=== PATIENT | male | born 1960 | race Caucasian/White ===

== ENCOUNTER 2022-07-26 15:41 | Emergency (ER) | payer OTHER, SELFPAY ==
[2022-07-26] VITALS (11 sets, daily range): BP systolic 139–182; BP diastolic 73–88; PULSE 85–99; RESP 16–28; TEMP 37; O2SAT 91–98
--- NOTE | ~2022-07-26 | CT_ITS ---
EXAMINATION: CTA brain carotid DATE: 07/26/2022 19:57 INDICATION: new onset vertigo TECHNIQUE: Computed tomographic angiography (CTA) of the head was performed without and with 100 mL O mnipaque-350 intravenous contrast. CTA of the neck was performed with intravenous contrast. Automated exposure control and iterative reconstruction technique were employed. The dose-length product was 2 813.95 mGy-cm. Maximum intensity projection and volume rendered 3D-reconstructions were created by ronnie wray technologist on a separate workstation. COMPARISON: None. FINDINGS: Exam limited by body habitus and contrast bolus timing difficulty. CT BRAIN: No acute large vessel infarct, intracranial hemorrhage, mass, or hydrocephalus. Focal area of encepha lomalacia in the right parietal lobe. Old bilateral basal ganglia lacunar infarcts. Trace right masto id fluid. Expansile right ethmoid air cell polyp which obstructs the right sphenoid sinus which is ne coco completely opacified and also bows into the right orbital space CTA HEAD: No large vessel occlusion, aneurysm, high flow vascular malformation, nidus or extravasation. Calcifi ed plaque at the proximal left anterior cerebral artery, without significant stenosis. Calcified plaq ues in the cavernous portions of the bilateral carotids, with mild bilateral stenoses. CTA NECK: Aortic arch and proximal great vessels: Atherosclerotic calcifications at the visualized aortic arch and proximal great vessels. Right common carotid, carotid bifurcation, and internal carotid artery: Moderate calcified and noncal cified plaque at the carotid bifurcation.There is at least 60% stenosis of the proximal right interna l carotid artery relative to normal distal artery lumen diameter (NASCET criteria). Left common carotid, carotid bifurcation, and internal carotid artery: Significant calcified and nonc alcified plaque at the carotid bifurcation.There is at least 80% stenosis of the proximal left planner intern al carotid artery relative to normal distal artery lumen diameter (NASCET criteria). Vertebral arteries: No significant plaque or stenosis. Left vertebral artery is dominant. Hypoplastic right vertebral artery with minimal opacification. Other findings: None. IMPRESSION: Limited examination as detailed above. No acute large vessel infarct. 80% stenosis of the proximal le ft internal carotid artery. 60% stenosis of the proximal right internal carotid artery. Old right par ietal and bilateral basal ganglia lacunar infarcts. Expansile right ethmoid air cell polyp which impi nges on the right orbital space and obstructs the right sphenoid sinus. Reviewed, dictated and finalized at location K. [employer]SULT[employer] IMPRESSION: Limited examination as detailed above. No acute large vessel infarct. 80% steno sis of the proximal left internal carotid artery. 60% stenosis of the proximal right internal carotid artery. Old right parietal and bilateral basal ganglia l acunar infarcts. Expansile right ethmoid air cell polyp which impinges on the r ight orbital space and obstructs the right sphenoid sinus.
--- NOTE | 2022-07-26 15:43 | ECG_ITS ---
Measurements Intervals [place] Rate: 90 P: 26 W[place]: 172 QRS: -7 QRSD: 102 T: 32 QT: 368 QTc: 452 Interpretive Statements SINUS RHYTHM DELAYED PRECORDIAL R/S TRANSITION LEFT VENTRICULAR HYPERTROPHY BASELINE ARTIFACT- V6 BORDERLINE ECG NO PREVIOUS ECG AVAILABLE FOR COMPARISON Electronically Signed On 07-26-2022 16:31:17 [employer] by Salvador Michele D.O.
[2022-07-26 16:05] LABS: Basophils Absolute Auto 0.1 K/mm3 (0.0-0.1); Basophils Percent Auto 0.6 % (0.2-1.2); Eosinophils Absolute Auto 0.1 K/mm3 (0-0.3); Eosinophils Percent Auto 1.1 % (0-4.4); Hematocrit 45.5 % (42.0-52.0); Hemoglobin 15.2 g/dL (14.0-18.0); Immature Granulocyte Absolute 0.09 K/mm3 (0.00-0.031); Immature Granulocyte Percent A 0.7 % (0-0.5); Lymphocytes Absolute Auto 2.48 K/mm3 (0.9-3.2); Lymphocytes Percent Auto 19.7 % (18.3-44.2); Mean Corpuscular HGB Conc 33.4 g/dl (32-36); Mean Corpuscular Hemoglobin 31.3 pg (26-34); Mean Corpuscular Volume 93.6 fl (80-100); Mean Platelet Volume 9.1 fl (7.4-10.4); Monocytes Percent Auto 7.8 % (2.6-8.5); Neutrophils Absolute Auto 8.8 K/mm3 (1.3-6.7); Neutrophils Percent Auto 70.1 % (45.5-73.1); Platelet Count Result 315 k/mm3 (150-375); Red Blood Count 4.86 M/mm3 (4.6-6.20); Red Cell Distribution Width 12.8 % (11.5-14.5); White Blood Count 12.6 K/mm3 (4.5-10.0)
[2022-07-26 17:12] LABS: Alanine Aminotransferase 32 U/L (6-50); Albumin Level 4.9 g/dL (3.5-5.1); Alkaline Phosphatase 82 U/L (38-126); Anion Gap 13 mmol/L (8-16); Aspartate Amino Transferase 35 U/L (17-59); Bilirubin,Total 0.6 mg/dL (0.2-1.3); Blood Urea Nitrogen 13 mg/dL (9-20); Calcium 9.7 mg/dL (8.4-10.2); Carbon Dioxide 24 mmol/L (22-30); Chloride 102 mmol/L (98-107); Estimated CRCL calculation 124 ml/min; Estimated Glomerular Filt Rate > 60; Glucose 142 mg/dL (65-110); Potassium 4.2 mmol/L (3.4-5.0); Sodium 139 mmol/L (137-145)
[2022-07-26] MEDS: MECLIZINE HCL 25 MG TABLET PO (21:06)
--- NOTE | 2022-07-26 22:00 | ED.DIZZY ---
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 Has never had symptoms like this before. Does see that he feels like his right ear is very blocked up. No focal numbness or weakness, difficulty speaking, headache. Related Data Allergies Allergy/AdvReac Type Severity Reaction Status Date / Time No Known Allergies Allergy Verified 07/26/22 15:43 Review of Systems Review of Systems: CONST: No fever. HEENT: Right ear fullness C/V: No chest pain RESP: No cough GI: No nausea or vomiting : No dysuria. M/S: No joint pain. SKIN: No rash. NEURO: Vertigo PSYCH: [No depression] [facility] Past Medical History Medical History (Updated 07/27/22 @ 02:28 by Carin Palacios MD) Sinusitis Surgical History Surgical History (Updated 07/27/22 @ 02:29 by Carin Palacios MD) H/O sinus surgery Exam Narrative: EXAMINATION OF ORGAN SYSTEMS/BODY AREAS: Constitutional: Vital signs per nursing GENERAL:[No acute distress, non-toxic appearing.] HEAD: Normal with no signs of head trauma. EYES: EOMI, conjunctiva normal, nystagmus ENT: Cerumen bilaterally worse in right ear, no mastoid tenderness LUNGS: Nonlabored breathing. HEART: [Regular rate and rhythm] ABD: [Soft], [nontender to palpation] EXT: Normal range of motion SKIN: [No rashes or lesions.] NEURO: [Alert and oriented x 3. No gross focal sensory or strength deficits.] PSYCH: Normal affect Course Vital Signs Vital signs: Vital Signs Temperature 98.6 F 07/26/22 15:43 Pulse Rate 92 07/26/22 15:43 Respiratory Rate 16 07/26/22 15:43 Blood Pressure 182/88 H 07/26/22 15:43 Pulse Oximetry 97 07/26/22 15:43 Temperature 98.6 F 07/26/22 15:43 Pulse Rate 99 07/26/22 21:44 Respiratory Rate 24 H 07/26/22 21:01 Blood Pressure 140/73 07/26/22 21:44 Pulse Oximetry 93 11/21/22 21:01 MDM - Dizziness MDM Narrative Medical decision making narrative: 61-year-old male presenting with vertigo that started today, and right ear fullness, on exam he does have some nystagmus and impacted cerumen to the right ear, otherwise unremarkable neurologic exam with NIH stroke scale of 0; HINTs exam consistent with peripheral cause. Vital signs stable. He is treated with meclizine, ears are irrigated, labs and imaging obtained which show some old infarcts but no acute abnormality in the brain, signs of sinusitis. On reevaluation, patient states that his symptoms have largely resolved, he is able to ambulate around the room with a normal steady gait, I have offered him admission and MRI but he would like to go home at this time, I discussed this case with the neurologist on-call who was agreeable to see in the outpatient for further evaluation as needed. I have low concern for central cause of his symptoms given the resolution of his symptoms with meclizine and I suspect most likely a peripheral cause. Strict return precautions provided to the patient especially any signs of CVA which were explained extensively to the patient. Lab Data Result diagrams: 07/26/22 15:55 07/26/22 15:55 Labs: Lab Results 07/26/22 07/26/22 Range/Units 15:55 15:55 WBC 12.6 H (4.5-10.0) K/mm3 RBC 4.86 (4.6-6.20) M/mm3 Hgb 15.2 (14.0-18.0) g/dL Hct 45.5 (42.0-52.0) % MCV 93.6 (80-100) fl MCH 31.3 (26-34) pg MCHC 33.4 (32-36) g/dl RDW 12.8 (11.5-14.5) % Plt Count 315 (150-375) k/mm3 MPV 9.1 (7.4-10.4) fl Immature Gran % (Auto) 0.7 H (0-0.5) % Neut % (Auto) 70.1 (45.5-73.1) % Lymph % (Auto) 19.7 (18.3-44.2) % Craig % (Auto) 7.8 (2.6-8.5) % Eos % (Auto) 1.1 (0-4.4) % Baso % (Auto) 0.6 (0.2-1.2) % Lymph # (Aut
== END 2022-07-26 22:57 | disposition home or self-care (01) ==
PROVIDERS: Emergency Medicine; Emergency Provider Emergency Medicine
DX: R42 Dizziness and giddiness (principal); J32.9 Chronic sinusitis, unspecified; I51.7 Cardiomegaly
CPT/HCPCS: 36415; 70496; 70498; 80053; 85025; 93005; 99284; A9270; Q9967